=== PATIENT | male | born 1995 | race African-American/Black ===

== ENCOUNTER 2018-07-11 15:17 | Emergency (ER) | payer SELFPAY ==
[~2018-07-11] VITALS: Ht 170.2 cm; Wt 65.9 kg
[2018-07-11 15:22] VITALS: BP 110/70; TEMP 98.5
[2018-07-11] MEDS ORDERED: AMOXICILLIN 8751 TAB PO (16:00)
[2018-07-11 16:26] VITALS: PULSE 86
== END 2018-07-11 16:26 | disposition home or self-care (01) ==
LOC: COL.ER 15:17
DX: S01.81XA Laceration without foreign body of other part of head, initial encounter (principal); J01.90 Acute sinusitis, unspecified; F17.210 Nicotine dependence, cigarettes, uncomplicated; W26.8XXA Contact with other sharp object(s), not elsewhere classified, initial encounter; Y92.310 Basketball court as the place of occurrence of the external cause; Y93.67 Activity, basketball

== ENCOUNTER 2018-08-05 19:03 | Emergency (ER) | payer SELFPAY ==
[~2018-08-05] VITALS: Ht 170.2 cm; Wt 65.9 kg
[~2018-08-05 19:03] MED LIST: AMOXICILLIN 8751 TAB PO
[2018-08-05 19:20] VITALS: TEMP 98.9
[2018-08-05 20:33] LABS: COLLECTION METHOD CLEAN CATCH
[2018-08-05 20:56] LABS: MUCOUS Present /lpf; PH 6 (5-8); SQUAMOUS EPITHELIAL None Seen /hpf; URINE APPEARANCE Clear; URINE BACTERIA None Seen /hpf; URINE BILIRUBIN Negative (NEGATIVE); URINE BLOOD Negative (NEGATIVE); URINE COLOR Yellow; URINE GLUCOSE Negative (NEGATIVE); URINE KETONE Negative (NEGATIVE); URINE LEUKOCYTE ESTERASE Negative (NEGATIVE); URINE NITRATE Negative (NEGATIVE); URINE PROTEIN(semi-quant) Negative (NEGATIVE); URINE RBC 0-2 /hpf; URINE UROBILINOGEN Negative (NEGATIVE)
[2018-08-05] MEDS ORDERED: DOXYCYCLINE 10100 MG PO (21:13)
[2018-08-05 21:46] VITALS: BP 127/85; PULSE 65
== END 2018-08-05 21:46 | disposition home or self-care (01) ==
LOC: COL.ER 19:03
PROVIDERS: Emergency Medicine
DX: R30.0 Dysuria (principal); R10.2 Pelvic and perineal pain
CPT/HCPCS: J0696